=== PATIENT | female | born 1990 | race Caucasian/White ===

== ENCOUNTER 2020-07-08 23:52 | Inpatient (IN) | payer BC ==
[~2020-07-08] VITALS: Ht 160 cm; Wt 68.0 kg
[~2020-07-08 23:52] MED LIST: AUGMENTIN 875-1 EACH PO; HYDROCODON-ACE1 EAC7 PO; LESSINA1 EACH PO; METHOTREXA25 MG/1 M6 SUBQ; OXYBUTYNIN 5 MG5 M1 PO; REMICADE 1100 MG/VIA IV
[2020-07-09 00:01] VITALS: BP 129/98
[2020-07-09 00:44] LABS: URINE BILIRUBIN NEGATIVE (Negative); URINE BLOOD NEGATIVE (Negative); URINE CLARITY CLEAR; URINE COLOR YELLOW; URINE GLUCOSE-RANDOM* NEGATIVE (Negative); URINE KETONES NEGATIVE (Negative); URINE NITRITE-REFLEX NEGATIVE (Negative); URINE PROTEIN (DIPSTICK) TRACE (Negative); URINE SPECIFIC GRAVITY >= 1.030 (1.005-1.035); URINE UROBILINOGEN 0.2 E.U./dl (0.2-1.0)
[2020-07-09 00:49] LABS: ABSOLUTE NEUTROPHILS 3.2 thou/uL (1.4-8.2); BASOPHILS 0.2 % (0.0-2.0); EOSINOPHILS 0.4 % (0.0-3.0); HEMATOCRIT 39.9 % (37.0-47.0); HEMOGLOBIN 13.7 gm/dL (12.0-15.0); LYMPHOCYTES 32.5 % (24.0-44.0); MCH 32.2 pg (26.0-34.0); MCHC 34.3 g/dL (28.0-37.0); MCV 93.8 fL (80.0-100.0); PLATELET COUNT 182 thou/uL (150-400); POLYS 55.9 % (36.0-66.0); RBC 4.25 mil/uL (4.20-5.00); RDW 13.5 % (10.5-14.5); WBC 5.7 thou/uL (4.0-11.0)
[2020-07-09 01:01] LABS: URINE LEUKOCYTES-REFLEX 1+ (Negative)
[2020-07-09 01:03] LABS: CASTS None Seen /LPF (None Seen); MUCUS 0-3 Light strn/LPF (None Seen); SQUAMOUS 0-3 Few /LPF (0-3)
[2020-07-09 01:04] LABS: BACTERIA-REFLEX 1-9 Few /HPF (None Seen); CRYSTALS None Seen /LPF (None Seen); URINE RBC 0-2 Rare /HPF (0-2); URINE WBC-REFLEX 6-15 Few /HPF (0-5); WBC CLUMPS Occasional (None Seen)
[2020-07-09 01:11] LABS: CALCIUM 9.6 mg/dL (8.5-10.1); CREATININE 1.5 mg/dL (0.6-1.0); POTASSIUM 3.9 mmol/L (3.5-5.1)
[2020-07-09 01:17] LABS: ALBUMIN 4.3 g/dL (3.4-5.0); DIRECT BILIRUBIN 0.1 mg/dL (<0.1-0.2); TOTAL BILIRUBIN 0.5 mg/dL (0.2-1.0); TOTAL PROTEIN 7.8 g/dL (6.4-8.2)
[2020-07-09] MEDS ORDERED: ALPRAZOLAM ER0.5 MG PO (01:27)
[2020-07-09] MEDS ORDERED: DESVENLAFAXINE100 MG PO (01:29)
[2020-07-09] MEDS ORDERED: ESZOPICLONE2 MG PO (01:30)
[2020-07-09] MEDS ORDERED: PLAQUENIL200 MG PO (01:31)
[2020-07-09] MEDS ORDERED: MELOXICAM15 MG PO (01:32)
[2020-07-09] MEDS ORDERED: LYRICA150 MG PO (01:33)
[2020-07-09] MEDS ORDERED: RINVOQ ER15 MG PO (01:34)
[2020-07-09 03:29] VITALS: BP 127/80
[2020-07-09 04:08] VITALS: BP 127/82
[2020-07-09 04:21] LABS: CHOLESTEROL 198 mg/dL (<200); HDL CHOLESTEROL 82 mg/dL (>40); LDL CHOLESTEROL 95 mg/dL (<100); TC:HDL 2.4 Ratio (Not establshd); TRIGLYCERIDE 109 mg/dL (<150); VLDL 22 mg/dL (<40)
[2020-07-09 04:24] LABS: SERUM ASSESSMENT Clear
[2020-07-09 05:20] VITALS: BP 125/90
[2020-07-09 07:10] VITALS: BP 118/83
[2020-07-09 15:20] VITALS: BP 118/85
[2020-07-10 06:14] LABS: ABSOLUTE NEUTROPHILS 2.3 thou/uL (1.4-8.2); BASOPHILS 0.2 % (0.0-2.0); EOSINOPHILS 0.3 % (0.0-3.0); HEMATOCRIT 35.2 % (37.0-47.0); LYMPHOCYTES 24.4 % (24.0-44.0); MCH 32.3 pg (26.0-34.0); MCHC 34.1 g/dL (28.0-37.0); MCV 94.5 fL (80.0-100.0); MONOCYTES 10.5 % (1.0-8.0); PLATELET COUNT 147 thou/uL (150-400); POLYS 64.6 % (36.0-66.0); RBC 3.72 mil/uL (4.20-5.00); RDW 13.3 % (10.5-14.5); WBC 3.6 thou/uL (4.0-11.0)
[2020-07-10 06:39] LABS: ALBUMIN 3.4 g/dL (3.4-5.0); CALCIUM 8.3 mg/dL (8.5-10.1); CREATININE 0.9 mg/dL (0.6-1.0); PHOSPHORUS 2.7 mg/dL (2.6-4.7); TOTAL BILIRUBIN 0.4 mg/dL (0.2-1.0); TOTAL PROTEIN 6.1 g/dL (6.4-8.2)
[2020-07-10 07:45] VITALS: BP 92/60
[2020-07-10 15:41] VITALS: BP 108/69
--- NOTE | 2020-07-11 07:34 | EKG ---
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 : 1990 Requested By: Mame Whitfield Order Number: [id number] MD: Giuseppe Graham Measurements Intervals [place] Rate: 97 P: 41 LA: 172 QRS: 41 QRSD: 96 T: -11 QT: 345 QTc: 439 Interpretive Statements Sinus rhythm Nonspecific T abnormalities, anterior leads No previous ECG available for comparison Electronically Signed On 07-11-2020 7:34:23 [employer] by Guiseppe Graham [email or web address] <ELECTRONICALLY SIGNED> By: Giuseppe Graham MD, [facility] 07/11/20 0734 1 Giuseppe Graham MD, FACC /EPI
== END 2020-07-10 16:44 | disposition left against medical advice (07) | DRG 440 ==
LOC: ER 23:52 → EROBS 07-09 02:26 → 4W 07-09 02:26 → EROBS 07-09 04:35 → 4W 07-09 05:24
PROVIDERS: Emergency Medicine; Nurse Practitioner Family; ADMIT Internal Medicine; ATTEND Internal Medicine
DX: K85.90 Acute pancreatitis without necrosis or infection, unspecified (principal); M06.9 Rheumatoid arthritis, unspecified; M79.7 Fibromyalgia; K58.9 Irritable bowel syndrome, unspecified; R74.01 Elevation of levels of liver transaminase levels; Z53.21 Procedure and treatment not carried out due to patient leaving prior to being seen by health care provider; Z79.899 Other long term (current) drug therapy; Z85.51 Personal history of malignant neoplasm of bladder
CPT/HCPCS: 10047